=== PATIENT | female | born 1975 | race Caucasian/White ===

== ENCOUNTER 2017-03-29 09:29 | Emergency (ER) | payer OTHER ==
[~2017-03-29] VITALS: Ht 157.4 cm; Wt 68.0 kg
[~2017-03-29 09:29] MED LIST: AMOXICILLIN500 M2 PO; HYDROCODONE BIT1 T11 PO; IBU800 MG PO
[2017-03-29] MEDS ORDERED: NALTREXONE HCL50 MG PO (09:59)
[2017-03-29] MEDS ORDERED: SPIRONOLACTONE100 MG PO (09:59)
[2017-03-29] MEDS ORDERED: VITAMIN D50000 I3 PO (09:59)
[2017-03-29] MEDS ORDERED: DEXTROAMPH SACC20 M1 PO (10:00)
[2017-03-29] MEDS ORDERED: BUDEPRION XL150 MG PO (10:00)
[2017-03-29] MEDS ORDERED: TOPIRAMATE50 M2 PO (10:00)
== END 2017-03-29 11:30 | disposition home or self-care (01) ==
LOC: ED 09:29
DX: S93.401A Sprain of unspecified ligament of right ankle, initial encounter (principal); X50.9XXA Other and unspecified overexertion or strenuous movements or postures, initial encounter; X50.0XXA Overexertion from strenuous movement or load, initial encounter; Y93.89 Activity, other specified; Y92.9 Unspecified place or not applicable; Y99.9 Unspecified external cause status

== ENCOUNTER 2017-08-21 19:36 | Emergency (ER) | payer OTHER ==
[~2017-08-21] VITALS: Ht 165.1 cm; Wt 59.0 kg
[~2017-08-21 19:36] MED LIST changes: +BUDEPRION XL150 MG PO; +DEXTROAMPH SACC20 M1 PO; +NALTREXONE HCL50 MG PO; +SPIRONOLACTONE100 MG PO; +TOPIRAMATE50 M2 PO; +VITAMIN D50000 I3 PO
== END 2017-08-21 22:51 | disposition home or self-care (01) ==
LOC: ED 19:36
DX: S06.0X0A Concussion without loss of consciousness, initial encounter (principal); S40.022A Contusion of left upper arm, initial encounter; S40.021A Contusion of right upper arm, initial encounter; S20.219A Contusion of unspecified front wall of thorax, initial encounter; Z79.899 Other long term (current) drug therapy; Y04.0XXA Assault by unarmed brawl or fight, initial encounter; Y93.89 Activity, other specified; Y92.89 Other specified places as the place of occurrence of the external cause; Y99.8 Other external cause status

== ENCOUNTER 2018-03-26 13:37 | Emergency (ER) | payer OTHER ==
[~2018-03-26] VITALS: Ht 157.4 cm; Wt 74.8 kg
[2018-03-26 15:30] LABS: BASO % 0.4 % (0.0-1.0); EOS # 0.1 10*3/uL (0.0-0.4); EOS % 1.5 % (1.0-4.0); HEMATOCRIT 40.2 % (37.0-47.0); HEMOGLOBIN 13.2 g/dl (12.0-16.0); LYMPH # 1.6 10*3/uL (1.3-4.4); LYMPH % 24.1 % (27.0-41.0); MEAN CELL VOLUME 91.8 fl (81.0-99.0); MEAN CORPUSCULAR HGB 30.1 pg (27.0-31.0); MEAN CORPUSCULAR HGB CONC 32.8 g/dl (33.0-37.0); MEAN PLATELET VOLUME 10.6 fl (9.6-12.3); MONO # 0.6 10*3/uL (0.1-1.0); MONO % 9.6 % (3.0-9.0); NEUT # 4.3 10*3/uL (2.3-7.9); NEUT % 64.3 % (47.0-73.0); PLATELET COUNT AUTOMATED 196 10*3/uL (130-400); RED BLOOD COUNT 4.38 10*6/uL (4.10-5.10); RED CELL DISTRI WIDTH 12.4 % (0-14.5); WHITE BLOOD COUNT 6.7 10*3/uL (4.8-10.8)
[2018-03-26 15:44] LABS: ALBUMIN 3.7 gm/dl (3.1-4.5); ALKALINE PHOSPHATASE 67 U/L (45-117); BUN 17 mg/dl (7-24); CHLORIDE 110 mmol/L (98-107); CREATININE 0.86 mg/dL (0.55-1.02); LIPASE 100 U/L (73-393); POTASSIUM 3.8 mmol/L (3.5-5.1); SGOT/AST 16 IU/L (3-35); SGPT/ALT 23 U/L (12-78); SODIUM 142 mmol/L (136-145); TOTAL PROTEIN 7.2 gm/dL (6.4-8.2)
== END 2018-03-26 17:35 | disposition home or self-care (01) ==
LOC: ED 13:37
PROVIDERS: Physician Assistant
DX: G43.909 Migraine, unspecified, not intractable, without status migrainosus (principal); E86.9 Volume depletion, unspecified; Z98.51 Tubal ligation status; Z79.899 Other long term (current) drug therapy

== ENCOUNTER → 2019-04-23 | Outpatient (CLI) | payer OTHER | END | disposition home or self-care (01) | LOC: RAD 11:24 | DX: R31.9 Hematuria, unspecified (principal) ==

== ENCOUNTER → 2019-04-30 | Outpatient (CLI) | payer OTHER | END | disposition home or self-care (01) | LOC: RAD 11:31 | DX: R30.0 Dysuria (principal); R10.9 Unspecified abdominal pain; R05 Cough; J15.9 Unspecified bacterial pneumonia ==

== ENCOUNTER → 2019-05-22 | Outpatient (CLI) | payer OTHER | END | disposition home or self-care (01) | LOC: CT 05-10 09:00 | DX: K57.30 Diverticulosis of large intestine without perforation or abscess without bleeding (principal) ==

== ENCOUNTER 2023-05-17 14:46 | Emergency (ER) | payer MEDICAID ==
[~2023-05-17] VITALS: Ht 157.4 cm; Wt 74.8 kg
[2023-05-17] MEDS ORDERED: BUPROPION XL300 MG PO (15:07)
[2023-05-17] MEDS ORDERED: VENT7GM INH (15:07)
[2023-05-17] MEDS ORDERED: PREDNISONE50 MG PO (16:51)
[2023-05-17] MEDS ORDERED: ZITHROMAX250 MG PO (16:51)
== END 2023-05-17 16:59 | disposition home or self-care (01) ==
LOC: ED 14:46
DX: J20.9 Acute bronchitis, unspecified (principal); F41.9 Anxiety disorder, unspecified; F90.9 Attention-deficit hyperactivity disorder, unspecified type; F32.A Depression, unspecified; Z98.51 Tubal ligation status; Z20.822 Contact with and (suspected) exposure to COVID-19

== ENCOUNTER 2024-05-12 19:56 | Emergency (ER) | payer BC ==
[~2024-05-12] VITALS: Ht 162.5 cm; Wt 72.6 kg
[~2024-05-12 19:56] MED LIST changes: +BUPROPION XL300 MG PO; +PREDNISONE50 MG PO; +VENT7GM INH; +ZITHROMAX250 MG PO
[2024-05-12] MEDS ORDERED: SODIUM CHLORIDE 0.9% 1,000 ML IV ONE (20:05)
[2024-05-12] MEDS ORDERED: methylPREDNISolone sod succ 125 MG VIAL IV ONE (20:05)
[2024-05-12] MEDS ORDERED: Ketorolac Tromethamine 15 MG/ML VIAL IV ONE (20:10)
[2024-05-12] MEDS ORDERED: METHOCARBAMOL 500 MG TAB PO ONE (20:10)
[2024-05-12 20:16] LABS: BASO % 0.4 % (0.0-1.0); EOS # 0.1 10*3/uL (0.0-0.4); EOS % 1.5 % (1.0-4.0); LYMPH % 28.8 % (27.0-41.0); MEAN CELL VOLUME 94.1 fl (81.0-99.0); MEAN CORPUSCULAR HGB 31.5 pg (27.0-31.0); MEAN CORPUSCULAR HGB CONC 33.5 g/dl (33.0-37.0); MEAN PLATELET VOLUME 10.2 fl (9.6-12.3); MONO # 0.6 10*3/uL (0.1-1.0); MONO % 9.4 % (3.0-9.0); NEUT # 4.1 10*3/uL (2.3-7.9); NEUT % 59.8 % (47.0-73.0); PLATELET COUNT AUTOMATED 223 10*3/uL (130-400); RED BLOOD COUNT 4.25 10*6/uL (4.10-5.10); RED CELL DISTRI WIDTH 12.5 % (0-14.5); WHITE BLOOD COUNT 6.8 10*3/uL (4.8-10.8)
[2024-05-12 20:32] LABS: BUN 15 mg/dl (9-23); CHLORIDE 109 mmol/L (98-107); POTASSIUM 3.5 mmol/L (3.4-5.1)
[2024-05-12 21:59] LABS: BILIRUBIN Negative (Negative); BLOOD Negative (Negative); CLARITY Clear (Clear); COLOR Yellow (Yellow); GLUCOSE Negative (Negative); KETONE Negative (Negative); LEUKO ESTERASE 1+ (Negative); NITRITE Negative (Negative); SPECIFIC GRAVITY 1.015 (1.001-1.030); UROBILINOGEN 0.2 E.U./dl (0.0-1.0)
[2024-05-12 22:14] LABS: BACTERIA 1+
[2024-05-12] MEDS ORDERED: METHOCARBAMOL500 M1 PO (22:15)
[2024-05-12] MEDS ORDERED: PREDNISONE50 MG PO (22:15)
== END 2024-05-12 22:20 | disposition home or self-care (01) ==
LOC: ED 19:56
PROVIDERS: Nurse Practitioner Family
DX: M54.6 Pain in thoracic spine (principal); F41.9 Anxiety disorder, unspecified; F32.A Depression, unspecified; Z98.51 Tubal ligation status